=== PATIENT | male | born 1980 | race Caucasian/White ===

== ENCOUNTER 2017-10-20 03:04 | Emergency (ER) | payer MEDICAID ==
[2017-10-20 03:04] VITALS: BMI 25.5
[2017-10-20 03:20] VITALS: RESP 20; O2SAT 98
[2017-10-20] MEDS ORDERED: Naproxen 550 mg Tab PO STA (03:47)
[2017-10-20] MEDS ORDERED: Lidocaine 5% Patch TD STA (03:48)
[2017-10-20] MEDS ORDERED: Naproxen 550 mg Tab PO ONE (03:56)
[2017-10-20] MEDS ORDERED: Lidocaine 5% Patch TD ONE (03:57)
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
[2017-10-20 04:49] VITALS: BP 118/70; PULSE 78; TEMP 98.1
== END 2017-10-20 04:49 | disposition home or self-care (01) ==
LOC: C.ER 03:04
DX: M54.12 Radiculopathy, cervical region (principal)